=== PATIENT | male | born 1990 | race Caucasian/White ===

== ENCOUNTER 2018-03-04 05:09 | Emergency (ER) | payer SELFPAY ==
[~2018-03-04] VITALS: Ht 160 cm; Wt 85.0 kg
[2018-03-04] MEDS ORDERED: KETOROLAC 60MG/2ML VIAL IM ONE (06:15)
[2018-03-04 07:16] VITALS: BP 157/85
== END 2018-03-04 07:18 | disposition home or self-care (01) ==
LOC: ER 05:09
DX: L03.012 Cellulitis of left finger (principal); F17.200 Nicotine dependence, unspecified, uncomplicated
CPT/HCPCS: 82962; 96372; 99283; J1885